=== PATIENT | male | born 1945 | race Caucasian/White ===

== ENCOUNTER 2016-06-12 13:27 | Inpatient (IN) | payer MEDICARE, OTHER ==
--- NOTE | ~2016-06-12 | DS ---
Unit #: [id number] #: [id number] Patient: HILDA LAIRD [id number] [address] [address] [id number] I MR#: [id number] NAME: HILDA LAIRD. ROOM: [facility] Age: 70 Sex: M Admission Date: 06/12/2016 : 1945 Discharge Date: 06/13/2016 Attending Physician: Brannon Fowler M.D. Primary Care Physician: Ashley Hutchinson M.D. DISCHARGE SUMMARY DISCHARGE DIAGNOSES 1. Loculated pleural effusion. 2. Congestive heart failure. 3. History of pneumonia. 4. Chronic respiratory failure. 5. Non-small cell lung cancer. DISCHARGE MEDICATIONS As per Med Rec. HOSPITAL COURSE The patient was admitted for loculated pleural effusion. Dr. Gray saw the patient and decided to pursue the thoracentesis as an outpatient and patient has been scheduled with them as an outpatient. PHYSICAL EXAM VITAL SIGNS - afebrile, stable. Awake, alert, oriented. No neuro deficit. HEENT - PERRLA. NECK supple. No JVD. CHEST - bilateral air entry, mild rhonchi. GI - nontender, soft. Bowel sounds positive. EXTREMITIES - no edema. The patient will be discharged home. Follow with thoracic surgery and follow with me in two weeks. Dictated by... London Salvador/vicki TD: 06/14/2016 08:27 JOB #: [id number] DISCHARGE SUMMARY X Brannon Fowler MD X DISCHARGE SUMMARY
--- NOTE | ~2016-06-12 | HP ---
Unit #: [id number] #: [id number] Patient: HILDA LAIRD [id number] [address] [address] [id number] I MR#: [id number] NAME: HILDA LAIRD. ROOM: 326 Age: 70 Sex: M Admission Date: 06/12/2016 : 1945 Attending Physician: Brannon Fowler M.D. Primary Care Physician: Ashley Hutchinson M.D. HISTORY AND PHYSICAL CHIEF COMPLAINT Pleural effusion. HISTORY OF PRESENT ILLNESS This 70-year-old male who has a past medical history significant for congestive heart failure, presented to my office with complaint of shortness of breath. CT chest ordered and showed right-side loculated pleural effusion. I am seeing the patient at the bedside complaining of shortness of breath. PAST MEDICAL HISTORY 1. Valve replacement. 2. Diabetes. 3. Lung cancer. 4. Psoriasis. 5. COPD. 6. Coronary artery disease. PAST SURGICAL HISTORY 1. Appendectomy. 2. Open heart surgery for coronary artery disease. HOME MEDICATIONS 1. Multivitamin. 2. Coumadin. 3. Coreg. 4. Crestor. 5. Metformin. 6. Aspirin. ALLERGIES No known drug allergies. SOCIAL HISTORY Denies smoking, no alcohol, no drug use. PHYSICAL EXAMINATION VITAL SIGNS: Temperature 98, pulse 67, respirations 12, blood pressure 110/70. NEUROLOGIC: Awake, alert, oriented. No neurologic deficits. HEENT: PERRLA. EOMI. NECK: Supple, no JVD. LUNGS: Bilateral air entry, bilateral mild rhonchi. ABDOMEN: Nontender, soft. Positive bowel sounds. Unit #: [id number] #: [id number] Patient: HILDA LAIRD EXTREMITIES: No edema. SKIN: No rashes, no ulcers. LYMPHATIC: No lymphadenopathy. DIAGNOSTIC STUDIES LABORATORY: Reviewed. IMAGING: Reviewed. ASSESSMENT AND PLAN 1. Chronic respiratory failure and loculated pleural effusion. 2. Lung cancer. 3. History of pneumonia. 4. Chronic anticoagulation. PLAN 1. Admit the patient. 2. Thoracic surgery consultation. 3. Continue home medications. 4. Please see orders for detailed plan. Dictated by Brannon Fowler M.D. Willam TD: 06/13/2016 19:05 JOB #: [id number] HISTORY AND PHYSICAL X Brannon Fowler MD HISTORY AND PHYSICAL
[~2016-06-12 13:27] MED LIST: AMIODARONE HCL100 MG PO; ASPIRIN81 MG PO; AZITHROMYCIN250 MG PO; BENZONATATE PO; BUMEX1 MG PO; CARVEDILOL12.5 MG PO; COREG PO; COUMADIN PO; COUMADIN5 MG PO; CRESTOR PO; CRESTOR40 MG PO; DEXAMETHASONE4 MG PO; DIGOX0.125 MG PO; FOLIC ACID1 MG PO; IRON325 ( 65 ) PO; K-DUR20 ME1 PO; KEFLEX500 M1 PO; LANOXIN PO; LASIX PO; METFORMIN HCL500 M1 PO; METOPROLOL TAR25 MG PO; MULTIVITAMIN1 UDCAP PO; NTG 0.4 MG/0.4 MG/M1 SL; OMNICEF300 M1 PO; PACERONE PO; PREDNISONE PO; ST. JOSEPH ASPI81 M3 PO; ZOFRAN ODT4 MG PO
[2016-06-12 21:12] LABS: HEMATOCRIT 39.2 % (38.0-50.0); HEMOGLOBIN 12.5 gm/dL (13.0-16.0); MEAN CELL VOLUME 90.8 FL (83-96); MEAN CORPUSCULAR HEMOGLOBIN 28.9 PG (28-34); MEAN CORPUSCULAR HGB CONC 31.8 g/dL (30-36); MEAN PLATELET VOLUME 7.2 FL (6.5-11.5); RED BLOOD COUNT 4.32 X10e (3.90-5.60); RED CELL DISTRIBUTION WIDTH 18.6 % (11.0-15.5); WHITE BLOOD COUNT 9.5 X10e3 (4.0-10.5)
[2016-06-12] MEDS ORDERED: BUMETANIDE1 MG PO (21:12)
[2016-06-12] MEDS ORDERED: COUMADIN5 MG PO (21:15)
[2016-06-12] MEDS ORDERED: COUMADIN2.5 MG PO (21:15)
[2016-06-12 21:17] LABS: INR 1.5
[2016-06-12] MEDS ORDERED: LIPITOR40 MG PO (21:17)
[2016-06-12] MEDS ORDERED: GLUCOPHAGE500 M1 PO (21:19)
[2016-06-12] MEDS ORDERED: LEVOTHYROXINE50 MCG PO (21:21)
[2016-06-12] MEDS ORDERED: AMIODARONE PO (21:22)
[2016-06-12] MEDS ORDERED: FISH OIL 1,0001 CA2 PO (21:25)
[2016-06-12] MEDS ORDERED: COREG6.25 MG PO (21:26)
[2016-06-12] MEDS ORDERED: LO-DOSE ASPIRIN81 M1 PO (21:27)
[2016-06-12 21:29] LABS: BLOOD UREA NITROGEN 17 mg/dL (9-23); BUN/CREATININE RATIO 14.16; CALCIUM SERUM 8.6 mg/dL (8.4-10.2); CARBON DIOXIDE 25 mmol/L (22-31); CHLORIDE 107 mmol/L (100-111); CREATININE SERUM 1.2 mg/dL (0.6-1.4); GLOM FILT RATE Estimated ABOVE60 mL/min (>60); GLUCOSE FASTING 103 mg/dL (70-110); SODIUM 137 mmol/L (135-145)
[2016-06-12] MEDS ORDERED: OTEZLA1 EACH PO (21:33)
[2016-06-13 06:22] LABS: HEMATOCRIT 37.6 % (38.0-50.0); HEMOGLOBIN 11.8 gm/dL (13.0-16.0); MEAN CELL VOLUME 91.1 FL (83-96); MEAN CORPUSCULAR HEMOGLOBIN 28.6 PG (28-34); MEAN CORPUSCULAR HGB CONC 31.4 g/dL (30-36); MEAN PLATELET VOLUME 7.7 FL (6.5-11.5); RED BLOOD COUNT 4.13 X10e (3.90-5.60); RED CELL DISTRIBUTION WIDTH 19.1 % (11.0-15.5); WHITE BLOOD COUNT 7.5 X10e3 (4.0-10.5)
[2016-06-13 06:32] LABS: INR 1.6; PROTHROMBIN TIME (PATIENT) 16.7 SECONDS (9.6-11.5)
[2016-06-13 07:20] LABS: BLOOD UREA NITROGEN 18 mg/dL (9-23); CALCIUM SERUM 8.8 mg/dL (8.4-10.2); CARBON DIOXIDE 25 mmol/L (22-31); CHLORIDE 107 mmol/L (100-111); CREATININE SERUM 1.2 mg/dL (0.6-1.4); GLOM FILT RATE Estimated ABOVE60 mL/min (>60); GLUCOSE FASTING 106 mg/dL (70-110); POTASSIUM 3.8 mmol/L (3.5-5.1); SODIUM 141 mmol/L (135-145)
[2016-06-30] MEDS ORDERED: MULTI-DAY VITAM1 TAB PO (10:49)
== END 2016-06-13 16:00 | disposition home or self-care (01) | DRG 291 ==
LOC: C3A PCU 13:27
PROVIDERS: Internal Medicine
DX: I50.9 Heart failure, unspecified (principal); J18.9 Pneumonia, unspecified organism; J96.10 Chronic respiratory failure, unspecified whether with hypoxia or hypercapnia; J81.1 Chronic pulmonary edema; J90 Pleural effusion, not elsewhere classified; J44.9 Chronic obstructive pulmonary disease, unspecified; C34.90 Malignant neoplasm of unspecified part of unspecified bronchus or lung; Z95.2 Presence of prosthetic heart valve; E11.9 Type 2 diabetes mellitus without complications; Z90.49 Acquired absence of other specified parts of digestive tract; E66.9 Obesity, unspecified; Z92.3 Personal history of irradiation; Z92.21 Personal history of antineoplastic chemotherapy; J98.4 Other disorders of lung
CPT/HCPCS: 71250; 80048; 82947; 85027; 85610; 94060; 94640; 94726; 94729; 94760; J1815

== ENCOUNTER 2016-07-02 05:51 | Inpatient (IN) | payer MEDICARE, OTHER ==
--- NOTE | ~2016-07-02 | CR72 ---
[facility] A Service of [facility] & [facility] RADIOLOGY TEXT RESULTS PATIENT: HILDA LAIRD LOCATION: [place] [address] : [birth year] UNIT #: [id number] AGE: [address]: Petey Murdock MD SEX: M ORDER DR: [id number] [facility] [address] [place], [place] [address] [id number] I MR#: [id number] Acc #: [id number] NAME: HILDA LAIRD. : 1945 SEX: M STUDY DATE/TIME: 07/03/2016 5:02 UNIT: [facility] ROOM: [facility] STUDY DESCRIPTION: CR Chest Single View Portable Attending Physician: Petey Murdock M.D. Ordering Physician: Petey Murdock M.D. Primary Care Physician: Ashley Hutchinson M.D. MEDICAL IMAGING REPORT This report is preliminary unless electronic signature is present EXAM Portable chest INDICATION Chest tube followup PROCEDURE Frontal view chest COMPARISON 07/02/2016 FINDINGS Right-sided chest tubes are unchanged. Persistent right upper lung zone opacity. No visible pneumothorax. IMPRESSION Stable. Dictated by... Blas Morales M.D. THIS IS AN ELECTRONICALLY VERIFIED REPORT Blas Morales M.D. at 07/06/2016 7:30 AM Daly TD: 07/03/2016 08:04 JOB #: [id number] MEDICAL IMAGING REPORT Page 1 of 1 COPY
--- NOTE | ~2016-07-02 | CR72 ---
[facility] A Service of [facility] & [facility] RADIOLOGY TEXT RESULTS PATIENT: HILDA LAIRD LOCATION: [place] [address] : [birth year] UNIT #: [id number] AGE: [address]: Petey Murdock MD SEX: M ORDER DR: [id number] [facility] [address] [place], [place] [address] [id number] I MR#: [id number] Acc #: [id number] NAME: HILDA LAIRD. : 1945 SEX: M STUDY DATE/TIME: 07/08/2016 14:10 UNIT: [facility] ROOM: [facility] STUDY DESCRIPTION: CR Chest Single View Portable Attending Physician: Petey Murdock M.D. Ordering Physician: Chayito Wright A.P.R.N. Primary Care Physician: Ashley Hutchinson M.D. MEDICAL IMAGING REPORT This report is preliminary unless electronic signature is present EXAM Portable chest radiograph. INDICATIONS Evaluate for pneumothorax following chest tube removal. COMPARISON Comparison is made to a prior exam from 07/06/2016. FINDINGS Cardiomediastinal silhouette is unchanged. Volume loss and dense consolidation at the right lung apex are also unchanged when compared to prior exam. Patient has right pleural effusion, probably at least partially loculated. Again I do not really think the appearance is significantly changed compared to prior study. There is blunting of the left costophrenic angle, which may reflect effusion or scarring. Patient is status post median sternotomy with coronary artery bypass grafting. No pneumothorax is seen on either side. Dictated by... Marcelina Son M.D. THIS IS AN ELECTRONICALLY VERIFIED REPORT Marcelina Son M.D. at 07/09/2016 1:00 PM AFF/js TD: 07/08/2016 15:21 JOB #: [id number] MEDICAL IMAGING REPORT Page 1 of 1 COPY
--- NOTE | ~2016-07-02 | CR72 ---
[facility] A Service of [facility] RADIOLOGY TEXT RESULTS PATIENT: HILDA LAIRD LOCATION: [place] [address] : [birth year] UNIT #: [id number] AGE: [address]: Petey Murdock MD SEX: M ORDER DR: [id number] [facility] [address] [facility]. [place], [place] [address] [id number] I MR#: [id number] Acc #: [id number] NAME: HILDA LAIRD. : 1945 SEX: M STUDY DATE/TIME: 07/06/2016 09:49 UNIT: [facility] ROOM: [facility] STUDY DESCRIPTION: CR Chest Single View Portable Attending Physician: Petey Murdock M.D. Ordering Physician: Petey Murdock M.D. Primary Care Physician: Ashley Hutchinson M.D. MEDICAL IMAGING REPORT This report is preliminary unless electronic signature is present EXAM Chest portable 07/06/2016 0949 hours CLINICAL HISTORY Right chest tube removal, follow up pleural effusion, evaluate for pneumothorax. COMPARISON 07/05/2016 FINDINGS Portable upright chest demonstrates volume loss in the right hemithorax with pleural fluid or pleural thickening unchanged. There is no pneumothorax. The left lung is well-expanded and clear. There is no left effusion. IMPRESSION 1. Stable chronic volume loss in the right hemithorax with pleural fluid or pleural thickening unchanged. 2. No chest tube is seen. There is no pneumothorax. 3. The left lung is well-expanded and clear. Dictated by... Stephany Lopez M.D. THIS IS AN ELECTRONICALLY VERIFIED REPORT Stephany Lopez M.D. at 07/07/2016 10:40 AM FAREED/luz TD: 07/06/2016 16:10 JOB #: [id number] [facility] A Service of [facility] RADIOLOGY TEXT RESULTS PATIENT: HILDA LAIRD LOCATION: [place] [address] : [birth year] UNIT #: [id number] AGE: [address]: Petey Murdock MD SEX: M ORDER DR: MEDICAL IMAGING REPORT Page 1 of 1 COPY
--- NOTE | ~2016-07-02 | CO ---
Unit #: [id number] #: [id number] Patient: HILDA LAIRD [id number] [facility] [address] [facility] [place] [facility]. [place], [place] [address] [id number] I MR#: [id number] NAME: HILDA LAIRD. ROOM: Age: 70 Sex: M Admission Date: 07/02/2016 : 1945 Attending Physician: Petey Murdock M.D. Primary Care Physician: Ashley Hutchinson M.D. Consultation Date: 07/02/2016 CONSULTATION REPORT REASON FOR CONSULTATION Postoperative pulmonary critical care management. CHIEF COMPLAINT Status post thoracic surgery on the right side for ICU management. HISTORY OF PRESENTING ILLNESS A 70-year-old morbidly obese male patient with past medical history significant for nonsmall-cell right-sided lung cancer, status post chemoradiation, diabetes mellitus, hypertension, and history of mitral valve repair, was recently seen by the pulmonary service at [facility] for evaluation of right-sided pleural effusion. Subsequently, he was discharged home for followup with Thoracic Surgery. Patient underwent successful right-sided video-assisted thoracoscopic surgery with evacuation of loculated right pleural fluid, right posterior pleural resection, and partial decortication, and is currently in the postoperative care unit. He has mild shortness of breath but is otherwise hemodynamically stable at this time. Pathology specimens are pending at the time of dictation of this report. ALLERGIES No known drug allergies. PAST MEDICAL HISTORY 1. Nonsmall-cell lung cancer on the right side, status post chemoradiation. 2. Diabetes mellitus. 3. Hypertension. 4. Paroxysmal atrial fibrillation, status post maze procedure. 5. History of psoriasis. 6. History of mitral valve repair. 7. Obstructive sleep apnea. PAST SURGICAL HISTORY 1. Appendectomy. 2. Coronary artery bypass grafting. 3. Right-sided thoracic surgery today. MEDICATIONS Reviewed. SOCIAL HISTORY Ex-smoker. He lives currently with family. No history of alcohol or recreational drug abuse. Unit #: [id number] #: [id number] Patient: HILDA LAIRD FAMILY HISTORY Positive for father and brother having myocardial infarction. REVIEW OF SYSTEMS Shortness of breath, cough, right-sided chest discomfort, nausea, decreased appetite, and dyspnea on exertion. All other 12 systems were reviewed and otherwise negative. PHYSICAL EXAMINATION GENERAL: Patient sitting on bed in PACU. VITAL SIGNS: Afebrile, pulse rate is 92, respiratory rate is 20, blood pressure is 100/54, and saturation is 95% on 3 liters of oxygen. HEENT: PERRLA. EOMI. No nystagmus. (1) central. There is no thyromegaly or jugular venous distention. HEART: S1 and S2, regular rate and rhythm. No murmurs. LUNGS: Decreased air entry bilaterally with scattered crepitations. ABDOMEN: Soft and nontender. No hepatosplenomegaly. Bowel sounds are normoactive. NEUROLOGIC: Alert, awake, and oriented in time, place, and person. There are no gross focal sensory or motor deficits. EXTREMITIES: No cyanosis, clubbing, or pedal edema. PSYCHIATRIC: Anxious and cooperative. DIAGNOSTIC STUDIES LABORATORY: WBC 9.7, hemoglobin 12.2, and platelets 245,000. Sodium 136, potassium 4.2, BUN 9, creatinine 1.4, and glucose 142. INR is 1.1. IMPRESSION 1. Status post right video-assisted thoracoscopic surgery, evacuation of loculated right pleural effusion, and resection of thick pleura, along with partial decortication. 2. History of nonsmall-cell right lung cancer, status post chemoradiation. 3. Recurrent right-sided pleural effusion. 4. Diabetes mellitus. 5. Hypertension. 6. History of psoriasis. 7. History of mitral valve repair. 8. History of paroxysmal atrial fibrillation, status post maze procedure. PLAN Patient will be admitted overnight to the medical intensive care unit for closer hemodynamic monitoring. Will continue his rate control with amiodarone 200 mg daily and gentle diuresis. Will provide adequate pain control, aggressive respiratory toilet, and oxygen support. Will do routine postoperative labs tomorrow morning. We will follow postop surgical recommendations. Thank you for the consult. We will follow along with you during this hospitalization. Dictated by... Ngoc Rodgers M.D. MM/ernestine TD: 07/02/2016 14:47 Unit #: [id number] #: [id number] Patient: HILDA LAIRD JOB #: [id number] CONSULTATION REPORT Page 1 of 1 X GRUPO RODGERS CONSULTATION REPORT
--- NOTE | ~2016-07-02 | CR72 ---
[facility] A Service of [facility] & [facility] RADIOLOGY TEXT RESULTS PATIENT: HILDA LAIRD LOCATION: [place] [address]- : [birth year] UNIT #: [id number] AGE: [address]: Petey Murdock MD SEX: M ORDER DR: [id number] [facility] [address] [facility]. [place], [place] [address] [id number] I MR#: [id number] Acc #: [id number] NAME: HILDA LAIRD. : 1945 SEX: M STUDY DATE/TIME: 07/05/2016440 UNIT: [facility] ROOM: [facility] STUDY DESCRIPTION: CR Chest Single View Portable Attending Physician: Petey Murdock M.D. Ordering Physician: Petey Murdock M.D. Primary Care Physician: Ashley Hutchinson M.D. MEDICAL IMAGING REPORT This report is preliminary unless electronic signature is present EXAM Portable chest, 07/05 at 0441. INDICATION Shortness of air. FINDINGS AP portable chest is compared with 07/04/2016. Cardiomegaly is stable. There is some mild atelectasis at the left base. Dense consolidation in the right apex and in the right lateral lower lung is stable. Right chest tubes in place. No pneumothorax on either side. Dictated by... David Hawk Jr., M.D. THIS IS AN ELECTRONICALLY VERIFIED REPORT David Hawk Jr., M.D. at 07/05/2016 11:59 PM NED/kylie TD: 07/05/2016 08:14 JOB #: [id number] MEDICAL IMAGING REPORT Page 1 of 1 COPY
--- NOTE | ~2016-07-02 | OR ---
Unit #: [id number] #: [id number] Patient: HILDA LAIRD [id number] [address] [address] [id number] I MR#: [id number] NAME: HILDA LAIRD. ROOM: 548 Date of Procedure: 07/02/2016 Admission Date: 07/02/2016 Surgeon: Petey Murdock M.D. : 1945 Attending Physician: Petey Murdock M.D. Primary Care Physician: Ashley Hutchinson M.D. OPERATIVE REPORT PREOPERATIVE DIAGNOSIS Recurrent right posterior pleural collection; prior history of lung carcinoma treated with chemotherapy and radiation therapy. POSTOPERATIVE DIAGNOSIS Recurrent right posterior pleural collection; prior history of lung carcinoma treated with chemotherapy and radiation therapy. PROCEDURES PERFORMED Right video-assisted thoracoscopy with evacuation of the right posterior pleural collection, resection of as much of the thickened pleura posteriorly as was possible and partial decortication of the lungs. ANESTHESIA General. ESTIMATED BLOOD LOSS About 100 mL. DRAINS Two #28 chest tubes. COMPLICATIONS None. DESCRIPTION OF PROCEDURE The patient was taken to the operating room and placed on the operating room table in a supine position. After appropriate monitoring lines had been placed, general endotracheal anesthesia was then induced using a double-lumen endotracheal tube. Adequate positioning of this tube was ensured using the pediatric bronchoscope. The patient was placed on the operating room table in a left lateral decubitus position. A rolled sheet was placed beneath the left axillary area. The patient was secured in place on the operating room table using a moore bag as well as tape across the right hip. The right arm was supported on an arm support. The right chest was prepped with DuraPrep and draped in a sterile fashion. A small 1.5 cm skin incision was made in the mid axillary line at about the seventh intercostal space. The incision was carried down through the subcutaneous tissue and muscle and fascia layers using the Bovie. The chest was entered at this level using a Sandy clamp and a gloved finger was inserted to break down adhesions. Following this, about a 6 or 7 cm incision was made in the anterior axillary line over the fifth intercostal Unit #: [id number] #: [id number] Patient: SEARS,HILDA T space. The incision was carried down through the subcutaneous tissue with hemostasis being obtained using the Bovie. The muscle and fascial layers were cut using the Bovie and the chest was entered at this level. Adhesions present between the lung and chest wall were taken down using blunt dissection with a ringed lung clamp as well as using the Bovie. This dissection was carried back posteriorly until the collection in the right lower posterior chest was identified. The capsule of this pleural collection was entered with what seemed to be old material suggestive of old blood clot that had matured. This material was removed using cupped biopsy forceps with portions of it being sent for culture and cytology. Following this, as much of the thickened pleura and capsule of this collection was removed posteriorly along the chest wall with portions being sent for culture and other portions being sent for pathologic examination. Along the lungs side, decortication was carried out of the lung with additional pleural peel being dissected free and removed. Also, additional fibrous tissue on the lung surface was removed using a Auguste dissector. In doing the partial decortication of the lung, it allowed the lung to better expand and to go back to fill up the additional space left where the loculated pleural collection had been present. After adequate hemostasis had been ensured, the chest was irrigated with normal saline solution. This saline was aspirated free from the pleural space. Hemostasis was again ensured. It should also be stated that during the process of dissection, a small incision had been made posteriorly to allow passage of instruments to help with countertraction. Two #28 chest tubes were inserted and brought out through separate stab wounds in the lower chest. They were sutured in place to the skin using 2-0 silk suture. The other two incisions in the chest were closed using 2-0 Vicryl for the muscle and fascial layer, 3-0 Vicryl for the subcutaneous tissue and running 4-0 Vicryl subcuticular stitch for the skin. Sterile dressings were applied. Estimated blood loss in the procedure was about 100 mL. Sponge and needle counts in the operation were correct. The patient tolerated the procedure well and left the operating room in satisfactory condition. Dictated by... Petey Murdock M.D. MARK/juan daniel TD: 07/22/2016 01:28 JOB #: [id number] OPERATIVE REPORT Page 1 of 1 X Peety Murdock MD OPERATIVE NOTE
--- NOTE | ~2016-07-02 | DS ---
Unit #: [id number] #: [id number] Patient: HILDA LAIRD [id number] [address] [place], [place] [address] [id number] I MR#: [id number] NAME: HILDA LAIRD. ROOM: 548 Age: 70 Sex: M Admission Date: 07/02/2016 : 1945 Discharge Date: 07/08/2016 Attending Physician: Petey Murdock M.D. Primary Care Physician: Ashley Hutchinson M.D. DISCHARGE SUMMARY ATTENDING Dr. Petey Murdock. REFERRING Dr. Brannon Fowler. Mr. Hilda Laird is a 70-year-old male with a history of an admit to [facility] in January of 2016 with a pleural effusion on the right and pneumonia. He underwent thoracentesis and his thoracentesis was nondiagnostic for carcinoma. The patient does have a history of lung cancer in 2014 and was cared for by Dr. Todd at [facility]. On that hospital visit, in January of 2016, he did have shortness of air, fever, cough and pneumonia type symptoms. He presented with Dr. Murdock on June 15, 2016 for evaluation and then to [facility] on July 02, 2016 to undergo right video-assisted thorascopy with evacuation of pleural collection and decortication. He is postoperative day five today and is ready for discharge. He has had some oozing from his chest tube site. Dr. Murdock is going to put a stitch at the chest tube site so that the patient can be discharged home. PHYSICAL EXAMINATION VITAL SIGNS: Blood pressure 102/61. Heart rate 66. Temperature 97.6. Respiratory rate 18, even and unlabored. He had a six minute walk today and tolerated room air walking in the martinez, 96 to 97%. LUNGS: Clear to auscultation. No rales, rhonchi or wheezes. CARDIOVASCULAR: S1, S2 without rub, without murmur. No S3 or S4 and no peripheral edema. His incision lines are well approximated without any exudate or bleeding. He has one chest tube site which is oozing red drainage. MEDICATIONS ON DISCHARGE 1. Lovenox 100 mg subcu once a day. 2. Coumadin 5 mg once a day. 3. Colace 100 mg twice daily. 4. Bumex 1 mg daily. 5. Atorvastatin 1 mg at bedtime. 6. Levoxyl 0.05 mg once daily. 7. Amiodarone 200 mg one tablet daily. 8. Carvedilol 6.25 mg one tablet twice daily. 9. Aspirin 81 mg once daily. 10. Multivitamin once daily. IMPRESSION Status post right video-assisted thoracoscopy with pleural collection Unit #: [id number] #: [id number] Patient: HILDA LAIRD evacuation as well as partial decortication of the right lung performed on July 02, 2016. PLAN Discharge home. Follow up in the office in one week. No lifting over 10 lb. No driving. No driving. No tub baths and may shower in three days. Dictated by... Chayito Wright A.P.R.N. for Petey Murdock M.D. TB/siomara TD: 07/10/2016 06:46 JOB #: [id number] DISCHARGE SUMMARY Page 1 of 1 X Chayito Wright APRN X DISCHARGE SUMMARY
--- NOTE | ~2016-07-02 | CR72 ---
[facility] A Service of [facility] & [facility] RADIOLOGY TEXT RESULTS PATIENT: HILDA LAIRD LOCATION: [address] : [birth year] UNIT #: [id number] AGE: [address]: Petey Murdock MD SEX: M ORDER DR: [id number] [facility] [address] [facility] [place], [place] [address] [id number] I MR#: [id number] Acc #: [id number] NAME: HILDA LAIRD. : 1945 SEX: M STUDY DATE/TIME: 07/02/2016 11:41 UNIT: [facility] ROOM: STUDY DESCRIPTION: CR Chest Single View Portable Attending Physician: Petey Murdock M.D. Ordering Physician: Petey Murdock M.D. Primary Care Physician: Ashley Hutchinson M.D. MEDICAL IMAGING REPORT This report is preliminary unless electronic signature is present EXAM Portable chest radiograph. INDICATION Shortness of breath starting today. Patient has a history of chest tube placement. COMPARISON Comparison is made to prior exam from 07/01/2015. FINDINGS 2 right-sided chest tubes are present. I think there is probably a tiny right-sided pneumothorax as well as some persistent right pleural fluid. Dense consolidation is again noted at the right lung apex. There is some increasing infiltrate versus atelectasis noted at the left lung base. There is probably also a small left pleural effusion. Patient is status post median sternotomy with coronary artery bypass grafting. Dictated by... Marcelina Son M.D. THIS IS AN ELECTRONICALLY VERIFIED REPORT Marcelina Son M.D. at 07/02/2016 6:30 PM AFF/gz TD: 07/02/2016 13:40 JOB #: [id number] MEDICAL IMAGING REPORT Page 1 of 1 COPY
--- NOTE | ~2016-07-02 | CR72 ---
[facility] A Service of [facility] & [facility] RADIOLOGY TEXT RESULTS PATIENT: HILDA LAIRD LOCATION: [place] [address] : [birth year] UNIT #: [id number] AGE: [address]: Petey Murdock MD SEX: M ORDER DR: [id number] [facility] [address] [place], [place] [address] [id number] I MR#: [id number] Acc #: [id number] NAME: HILDA LAIRD. : 1945 SEX: M STUDY DATE/TIME: 07/04/2016 4:30 UNIT: [facility] ROOM: [facility] STUDY DESCRIPTION: CR Chest Single View Portable Attending Physician: Petey Murdock M.D. Ordering Physician: Chayito Wright A.P.R.N. Primary Care Physician: Ashley Hutchinson M.D. MEDICAL IMAGING REPORT This report is preliminary unless electronic signature is present EXAM Single view of the chest dated 07/04/2016 at 0430 hours. COMPARISON Single view chest dated 07/03/2016 at 0502 hours. HISTORY Shortness of air for 3 days. Status post chest tube placement. History of diabetes, pneumonia. FINDINGS Frontal view of the chest was obtained. Patchy dense consolidation is redemonstrated in the right upper lobe. There are 2 right-sided chest tubes in place. Patient has had a loculated pleural effusion drained with still some residual opacity in that region. Mild layering right-sided pleural effusion could also be present. There are scattered atelectatic changes and mild interstitial prominence in the right lung and to a lesser degree in the left lung base. 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 Patient positioning limits evaluation. IMPRESSION No significant interval change. Dictated by... Dharmesh Forde M.D. THIS IS AN ELECTRONICALLY VERIFIED REPORT Dharmesh Forde M.D. at 07/06/2016 1:46 PM CPR/tmw TD: 07/04/2016 12:24 STS. [facility] A Service of [facility] & [facility] RADIOLOGY TEXT RESULTS PATIENT: HILDA LAIRD LOCATION: [place] [address] : [birth year] UNIT #: [id number] AGE: [address]: Petey Murdock MD SEX: M ORDER DR: JOB #: [id number] MEDICAL IMAGING REPORT Page 1 of 1 COPY
[~2016-07-02 05:51] MED LIST changes: +AMIODARONE PO; +BUMETANIDE1 MG PO; +COREG6.25 MG PO; +COUMADIN2.5 MG PO; +FISH OIL 1,0001 CA2 PO; +GLUCOPHAGE500 M1 PO; +LEVOTHYROXINE50 MCG PO; +LIPITOR40 MG PO; +LO-DOSE ASPIRIN81 M1 PO; +MULTI-DAY VITAM1 TAB PO; +OTEZLA1 EACH PO
[2016-07-02 12:16] LABS: HEMATOCRIT 38.1 % (38.0-50.0); HEMOGLOBIN 12.2 gm/dL (13.0-16.0)
[2016-07-02 12:24] LABS: ARTERIAL BLD GAS O2 SATURATION 94.5 % (90.0-100.0); ARTERIAL BLOOD GAS CARBOXY HB 1.4 %sat (0.0-9.0); ARTERIAL BLOOD GAS HCO3 29.5 mmol/L; ARTERIAL BLOOD GAS PO2 91.2 mmHg (80.0-100)
[2016-07-02 12:25] LABS: ARTERIAL BLOOD GAS ALLEN TEST NORMAL; ARTERIAL BLOOD GAS ART SITE RIGHT RADIAL; ARTERIAL BLOOD GAS DELIVERY NASAL CANNULA; ARTERIAL BLOOD GAS PCO2 54.8 mmHg (35.0-45.0); ARTERIAL DRAW? YES
[2016-07-02 12:39] LABS: BUN/CREATININE RATIO 13.57; CALCIUM SERUM 8.6 mg/dL (8.4-10.2); CREATININE SERUM 1.4 mg/dL (0.6-1.4); GLOM FILT RATE Estimated 50.6 mL/min (>60); MAGNESIUM 1.9 mg/dL (1.6-3.0); POTASSIUM 4.2 mmol/L (3.5-5.1)
[2016-07-03 04:55] LABS: ARTERIAL BLD GAS O2 SATURATION 91.8 % (90.0-100.0); ARTERIAL BLOOD GAS ALLEN TEST NORMAL; ARTERIAL BLOOD GAS ART SITE LEFT RADIAL; ARTERIAL BLOOD GAS CARBOXY HB 1.7 %sat (0.0-9.0); ARTERIAL BLOOD GAS DELIVERY NASAL CANNULA; ARTERIAL BLOOD GAS HCO3 29.5 mmol/L; ARTERIAL BLOOD GAS MET HB 0.9 %sat (0.0-2.0); ARTERIAL BLOOD GAS PO2 69.7 mmHg (80.0-100); ARTERIAL BLOOD GAS pH 7.388 (7.350-7.450); ARTERIAL DRAW? YES
[2016-07-03 06:52] LABS: BASOPHIL% 0.2 % (0-2.5); EOSINOPHIL# 0.2 X10e3 (0-0.7); EOSINOPHIL% 1.8 % (0.0-7.0); HEMATOCRIT 38.4 % (38.0-50.0); HEMOGLOBIN 12.2 gm/dL (13.0-16.0); LYMPHOCYTE# 0.6 X10e3 (1.0-3.5); LYMPHOCYTE% 5.5 % (17.0-45.0); MEAN CELL VOLUME 91.6 FL (83-96); MEAN CORPUSCULAR HGB CONC 31.7 g/dL (30-36); MEAN PLATELET VOLUME 7.7 FL (6.5-11.5); MONOCYTE% 10.1 % (3.0-12.0); NEUTROPHIL# 8.5 X10e3 (1.5-7.1); NEUTROPHIL% 82.4 % (40-75); PLATELET COUNT 196 X10e3 (140-420); RED BLOOD COUNT 4.19 X10e (3.90-5.60); RED CELL DISTRIBUTION WIDTH 18.9 % (11.0-15.5); WHITE BLOOD COUNT 10.3 X10e3 (4.0-10.5)
[2016-07-03 07:04] LABS: DIFF IND NO
[2016-07-03 07:32] LABS: BUN/CREATININE RATIO 12.3; CALCIUM SERUM 8.8 mg/dL (8.4-10.2); CREATININE SERUM 1.3 mg/dL (0.6-1.4); GLOM FILT RATE Estimated 55.3 mL/min (>60); POTASSIUM 4.5 mmol/L (3.5-5.1)
[2016-07-03 18:14] LABS: HEMATOCRIT 39.5 % (38.0-50.0); HEMOGLOBIN 12.7 gm/dL (13.0-16.0); MEAN CELL VOLUME 90.9 FL (83-96); MEAN CORPUSCULAR HEMOGLOBIN 29.2 PG (28-34); MEAN CORPUSCULAR HGB CONC 32.1 g/dL (30-36); MEAN PLATELET VOLUME 7.4 FL (6.5-11.5); RED BLOOD COUNT 4.34 X10e (3.90-5.60); RED CELL DISTRIBUTION WIDTH 19.1 % (11.0-15.5); WHITE BLOOD COUNT 10.8 X10e3 (4.0-10.5)
[2016-07-03 18:29] LABS: PARTIAL THROMBOPLASTIN TIME 29.3 SECONDS (23.5-31.3); PROTHROMBIN TIME (PATIENT) 10.7 SECONDS (9.6-11.5)
[2016-07-04 05:44] LABS: BASOPHIL% 0.2 % (0-2.5); EOSINOPHIL# 0.2 X10e3 (0-0.7); EOSINOPHIL% 1.6 % (0.0-7.0); HEMATOCRIT 36.2 % (38.0-50.0); HEMOGLOBIN 11.5 gm/dL (13.0-16.0); LYMPHOCYTE# 0.6 X10e3 (1.0-3.5); LYMPHOCYTE% 6.2 % (17.0-45.0); MEAN CELL VOLUME 90.9 FL (83-96); MEAN CORPUSCULAR HGB CONC 31.9 g/dL (30-36); MEAN PLATELET VOLUME 7.9 FL (6.5-11.5); MONOCYTE% 10.5 % (3.0-12.0); NEUTROPHIL% 81.5 % (40-75); PLATELET COUNT 182 X10e3 (140-420); RED BLOOD COUNT 3.99 X10e (3.90-5.60); RED CELL DISTRIBUTION WIDTH 19.1 % (11.0-15.5); WHITE BLOOD COUNT 9.9 X10e3 (4.0-10.5)
[2016-07-04 05:51] LABS: DIFF IND NO
[2016-07-04 06:29] LABS: BUN/CREATININE RATIO 12.3; CALCIUM SERUM 8.3 mg/dL (8.4-10.2); CREATININE SERUM 1.3 mg/dL (0.6-1.4); GLOM FILT RATE Estimated 55.3 mL/min (>60); POTASSIUM 3.7 mmol/L (3.5-5.1)
[2016-07-05 08:44] LABS: BUN/CREATININE RATIO 17.5; CALCIUM SERUM 8.6 mg/dL (8.4-10.2); CREATININE SERUM 1.2 mg/dL (0.6-1.4); GLOM FILT RATE Estimated 60.9 mL/min (>60); MAGNESIUM 2.1 mg/dL (1.6-3.0); POTASSIUM 3.7 mmol/L (3.5-5.1)
[2016-07-06 04:22] LABS: BASOPHIL% 0.4 % (0-2.5); EOSINOPHIL# 0.3 X10e3 (0-0.7); EOSINOPHIL% 2.6 % (0.0-7.0); HEMATOCRIT 32.1 % (38.0-50.0); HEMOGLOBIN 10.4 gm/dL (13.0-16.0); LYMPHOCYTE# 0.6 X10e3 (1.0-3.5); LYMPHOCYTE% 6.1 % (17.0-45.0); MEAN CELL VOLUME 90.3 FL (83-96); MEAN CORPUSCULAR HEMOGLOBIN 29.2 PG (28-34); MEAN CORPUSCULAR HGB CONC 32.3 g/dL (30-36); MEAN PLATELET VOLUME 7.3 FL (6.5-11.5); MONOCYTE# 1.1 X10e3 (0-1.0); NEUTROPHIL# 8.4 X10e3 (1.5-7.1); NEUTROPHIL% 79.9 % (40-75); PLATELET COUNT 208 X10e3 (140-420); RED BLOOD COUNT 3.55 X10e (3.90-5.60); RED CELL DISTRIBUTION WIDTH 18.4 % (11.0-15.5); WHITE BLOOD COUNT 10.5 X10e3 (4.0-10.5)
[2016-07-06 04:27] LABS: DIFF IND NO
[2016-07-06 06:15] LABS: BUN/CREATININE RATIO 20.83; CALCIUM SERUM 8.5 mg/dL (8.4-10.2); CREATININE SERUM 1.2 mg/dL (0.6-1.4); GLOM FILT RATE Estimated 60.9 mL/min (>60); POTASSIUM 4.1 mmol/L (3.5-5.1)
[2016-07-06 09:50] LABS: PROTHROMBIN TIME (PATIENT) 10.7 SECONDS (9.6-11.5)
[2016-07-07 05:52] LABS: INR 1.1; PROTHROMBIN TIME (PATIENT) 11.2 SECONDS (9.6-11.5)
[2016-07-08 04:46] LABS: PARTIAL THROMBOPLASTIN TIME 30.8 SECONDS (23.5-31.3)
[2016-07-08 14:32] LABS: HEMATOCRIT 29.4 % (38.0-50.0); HEMOGLOBIN 9.2 gm/dL (13.0-16.0); MEAN CELL VOLUME 91.1 FL (83-96); MEAN CORPUSCULAR HEMOGLOBIN 28.5 PG (28-34); MEAN CORPUSCULAR HGB CONC 31.2 g/dL (30-36); MEAN PLATELET VOLUME 7.3 FL (6.5-11.5); RED BLOOD COUNT 3.23 X10e (3.90-5.60); RED CELL DISTRIBUTION WIDTH 18.2 % (11.0-15.5); WHITE BLOOD COUNT 9.7 X10e3 (4.0-10.5)
[2016-07-08] MEDS ORDERED: MULTI VITAMIN1 EACH PO (17:40)
[2016-07-08] MEDS ORDERED: DOCUSATE SODIU100 MG PO (17:44)
[2016-07-08] MEDS ORDERED: ACID REDUCER20 MG PO (17:45)
[2016-07-08] MEDS ORDERED: OXYCODONE HCL5 MG PO (17:46)
[2016-07-08] MEDS ORDERED: TYLENOL325 M1 PO (18:19)
== END 2016-07-08 19:30 | disposition home or self-care (01) | DRG 164 ==
LOC: CSUR 05:51 → CPACUOF 11:25 → CICCU3 16:31 → C5B 07-04 12:04
PROVIDERS: Nurse Practitioner; Surgery
PROC: 0BDN4ZZ Extraction of Right Pleura, Percutaneous Endoscopic Approach (ICD-10-PCS; 2016-07-02)
PROC: 0BBN4ZX Excision of Right Pleura, Percutaneous Endoscopic Approach, Diagnostic (ICD-10-PCS; 2016-07-02)
PROC: 0BCN4ZZ Extirpation of Matter from Right Pleura, Percutaneous Endoscopic Approach (ICD-10-PCS; 2016-07-02)
PROC: 3E0L3GC Introduction of Other Therapeutic Substance into Pleural Cavity, Percutaneous Approach (ICD-10-PCS; principal; 2016-07-02 08:30)
PROC: 0BDP4ZZ Extraction of Left Pleura, Percutaneous Endoscopic Approach (ICD-10-PCS; 2016-07-02 08:30)
DX: J90 Pleural effusion, not elsewhere classified (principal); J96.10 Chronic respiratory failure, unspecified whether with hypoxia or hypercapnia; I48.0 Paroxysmal atrial fibrillation; J44.9 Chronic obstructive pulmonary disease, unspecified; Z95.2 Presence of prosthetic heart valve; E11.9 Type 2 diabetes mellitus without complications; Z85.118 Personal history of other malignant neoplasm of bronchus and lung; I25.10 Atherosclerotic heart disease of native coronary artery without angina pectoris; L40.9 Psoriasis, unspecified; Z79.82 Long term (current) use of aspirin; Z79.01 Long term (current) use of anticoagulants; G47.33 Obstructive sleep apnea (adult) (pediatric); Z95.1 Presence of aortocoronary bypass graft; Z66 Do not resuscitate
CPT/HCPCS: 36415; 36600; 71010; 71020; 80048; 80053; 81003; 82803; 82947; 83735; 85014; 85018; 85025; 85027; 85610; 85730; 86850; 86900; 86901; 87070; 87075; 87102; 87116; 87205; 87206; 88108; 88304; 88305; 88331; 93005; 94760; J0131; J0330; J0690; J1644; J1650; J2405; J2710; J3010

== ENCOUNTER → 2016-07-10 | Outpatient (CLI) | payer MEDICARE, OTHER ==
[~2016-07-10] MED LIST changes: +ACID REDUCER20 MG PO; +DOCUSATE SODIU100 MG PO; +MULTI VITAMIN1 EACH PO; +OXYCODONE HCL5 MG PO; +TYLENOL325 M1 PO
--- NOTE | ~2016-07-10 | CR63 ---
[facility] A Service of [facility] & [facility] RADIOLOGY TEXT RESULTS PATIENT: HILDA LAIRD LOCATION: [facility] : [birth year] UNIT #: [id number] AGE: [address]: Chayito Wright APRN SEX: M ORDER DR: [id number] [facility] [address] [place], [place] [address] [id number] O MR#: [id number] Acc #: [id number] NAME: HILDA LAIRD. : 1945 SEX: M STUDY DATE/TIME: 07/10/2016 13:23 UNIT: [facility] ROOM: STUDY DESCRIPTION: CR Chest 2 View Attending Physician: Chayito Wright A.P.R.N. Referring Physician: Chayito Wright A.P.R.N. Ordering Physician: Chayito Wright A.P.R.N. Primary Care Physician: Ashley Hutchinson M.D. MEDICAL IMAGING REPORT This report is preliminary unless electronic signature is present EXAM Chest PA and lateral HISTORY Follow up pleural effusion, shortness of breath, history of lung cancer. FINDINGS PA and lateral views of the chest are obtained and compared directly to the patient's previous portable film of 07/08/2016. Postop changes of prior bypass surgery are present. There is apical fibrosis and retraction on the right. This is not changed. There continues to be pleural thickening or pleural fluid on the right also unchanged. Left lung is clear. CONCLUSION 1. No interim change. Dictated by... Floyd Bauer M.D. THIS IS AN ELECTRONICALLY VERIFIED REPORT Floyd Bauer M.D. at 07/13/2016 7:20 AM SHARA/mary TD: 07/10/2016 21:12 JOB #: [id number] MEDICAL IMAGING REPORT Page 1 of 1 COPY
== END | disposition home or self-care (01) ==
LOC: CRAD 12:52
DX: J90 Pleural effusion, not elsewhere classified (principal)
CPT/HCPCS: 71020

== ENCOUNTER → 2016-08-13 | Outpatient (CLI) | payer MEDICARE, OTHER ==
--- NOTE | ~2016-08-13 | CR63 ---
[facility] A Service of [facility] & [facility] / [facility] RADIOLOGY TEXT RESULTS PATIENT: HILDA LAIRD LOCATION: [facility] : [birth year] UNIT #: [id number] AGE: [address]: Petey Murdock MD SEX: M ORDER DR: [id number] [facility] [address] [place], [place] [address] [id number] O MR#: [id number] Acc #: [id number] NAME: HILDA LAIRD : 1945 SEX: M STUDY DATE/TIME: 08/13/2016 14:24 UNIT: [facility] ROOM: STUDY DESCRIPTION: CR Chest 2 View Attending Physician: Petey Murdock M.D. Referring Physician: Petey Murdock M.D. Ordering Physician: Petey Murdock M.D. Primary Care Physician: Ashley Hutchinson M.D. MEDICAL IMAGING REPORT This report is preliminary unless electronic signature is present EXAM PA and lateral chest radiograph HISTORY Right-sided pleural effusion and right chest tube removal. History of right lung CA. Follow-up. FINDINGS PA and lateral views are obtained. Cardiac size is normal. The left lung shows some chronic scarring, but clear. Postop changes of sternotomy. There is apical fibrosis and retraction and there is right-sided pleural thickening. This is not changed significantly. CONCLUSION No significant interim change. Dictated by... Floyd Bauer M.D. THIS IS AN ELECTRONICALLY VERIFIED REPORT Floyd Bauer M.D. at 08/14/2016 7:09 AM Danitza TD: 08/13/2016 15:55 JOB #: [id number] MEDICAL IMAGING REPORT Page 1 of 1 COPY
== END | disposition home or self-care (01) ==
LOC: CRAD 14:12
DX: J90 Pleural effusion, not elsewhere classified (principal)
CPT/HCPCS: 71020

== ENCOUNTER → 2016-11-19 | Outpatient (CLI) | payer MEDICARE, OTHER ==
--- NOTE | ~2016-11-19 | CR63 ---
[facility] A Service of [facility] & [facility] RADIOLOGY TEXT RESULTS PATIENT: HILDA LAIRD LOCATION: [facility] : 45 UNIT #: [id number] AGE: [address]: Petey Murdock MD SEX: M ORDER DR: [id number] [facility] [address] [place], [place] [address] [id number] O MR#: [id number] Acc #: [id number] NAME: HILDA LAIRD : 1945 SEX: M STUDY DATE/TIME: 11/19/2016 14:01 UNIT: [facility] ROOM: STUDY DESCRIPTION: CR Chest 2 View Attending Physician: ePtey Murdock M.D. Referring Physician: Petey Murdock M.D. Ordering Physician: Petey Murdock M.D. Primary Care Physician: Ashley Hutchinson M.D. MEDICAL IMAGING REPORT This report is preliminary unless electronic signature is present EXAM Chest, 2 views, 11/19/2016, 1401 hours. CLINICAL HISTORY 70-year-old man for followup of pleural effusion. Patient has intermittent shortness of air, and intermittent chest pain for 2 months. History of pleural effusion for 1 year. COMPARISON 08/13/2016 FINDINGS Upright PA and lateral views of the chest demonstrate median sternotomy and CABG change with normal heart size and tortuous aorta. The lungs are hyperinflated with underlying emphysematous change. There is stable parenchymal density in the right upper lung. There is blunting of the right costophrenic sulcus posteriorly, likely an element of pleural fluid perhaps loculated posteriorly. This appears slightly improved over 08/13/2016. The left lung is clear. IMPRESSION Persistent right apical density unchanged. Best seen on the lateral view is posterior pleural fluid which could be loculated. This is located on the right side and appears improved from 08/13/2016, but has not resolved. Dictated by... Stephany Lopez M.D. THIS IS AN ELECTRONICALLY VERIFIED REPORT Stephany Lopez M.D. at 11/20/2016 9:08 AM FAREED/gabriela TD: 11/19/2016 19:17 [facility] A Service of [facility] & [facility] RADIOLOGY TEXT RESULTS PATIENT: HILDA LAIRD LOCATION: [facility] #: [id number] : [birth year] UNIT #: [id number] AGE: [address]: Petey Murdock MD SEX: M ORDER DR: JOB #: [id number] MEDICAL IMAGING REPORT Page 1 of 1 COPY
== END | disposition home or self-care (01) ==
LOC: CRAD 13:35
DX: J90 Pleural effusion, not elsewhere classified (principal); J98.4 Other disorders of lung
CPT/HCPCS: 71020